=== PATIENT | male | born 1990 | race African-American/Black ===

== ENCOUNTER 2021-09-23 15:57 | Emergency (ER) | payer OTHER ==
[~2021-09-23] VITALS: Ht 185.4 cm; Wt 81.8 kg
[2021-09-23 15:59] VITALS: BP 117/69
[2021-09-23] MEDS ORDERED: PERTUSS(ACELL),DIPH,TET VAC/PF 0.5 ML SYRINGE IM. ONE (17:00)
[2021-09-24 08:06] LABS: HEPATITIS C AB (EIA) <0.1 s/co ratio (0.0-0.9); HIV 1-2 SCREEN 4TH GEN W/RFLX Non Reactive (Non Reactive)
== END 2021-09-23 17:36 | disposition home or self-care (01) ==
LOC: EMS 16:01
DX: S61.230A Puncture wound without foreign body of right index finger without damage to nail, initial encounter (principal); W46.0XXA Contact with hypodermic needle, initial encounter; Y93.89 Activity, other specified; Y92.89 Other specified places as the place of occurrence of the external cause; Y99.8 Other external cause status
CPT/HCPCS: 80074; 87389; 90471; 90715; 99283